=== PATIENT | female | born 1985 | race Caucasian/White ===

== ENCOUNTER → 2023-04-26 | Outpatient (CLI) | payer OTHER | END | disposition home or self-care (01) | LOC: RAH 12:06 | PROVIDERS: ATTEND Physical Medicine & Rehabilitation | DX: M41.84 Other forms of scoliosis, thoracic region (principal); M43.8X6 Other specified deforming dorsopathies, lumbar region; M54.51 Vertebrogenic low back pain | CPT/HCPCS: 72082; 72114 ==